=== PATIENT | female | born 2000 | race African-American/Black ===

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

== ENCOUNTER 2021-04-04 22:18 | Emergency (ER) | payer MEDICAID ==
[~2021-04-04 22:18] MED LIST: POLYTRIM 1000010 ML OD; SINGULAIR PO
[2021-04-04] MEDS ORDERED: PREDNISONE20 MG PO (23:19)
[2021-04-04 23:23] VITALS: BP 104/58
== END 2021-04-04 23:23 | disposition home or self-care (01) ==
LOC: ED 22:18
DX: T26.91XA Corrosion of right eye and adnexa, part unspecified, initial encounter (principal); L25.9 Unspecified contact dermatitis, unspecified cause; X58.XXXA Exposure to other specified factors, initial encounter; Y99.0 Civilian activity done for income or pay
CPT/HCPCS: J7512

== ENCOUNTER → 2022-07-17 | Outpatient (CLI) | payer MEDICAID ==
[~2022-07-17] MED LIST changes: +PREDNISONE20 MG PO
== END ==
LOC: LAB 11:08
DX: R30.0 Dysuria (principal)

== ENCOUNTER → 2024-10-23 | Outpatient (CLI) | payer MEDICAID ==
[2024-10-23 08:50] LABS: PH-URINE 5.5 (5.0 - 8.0); URINE APPEARANCE CLEAR (CLEAR); URINE BILIRUBIN NEGATIVE (NEGATIVE); URINE BLOOD 2+ (NEGATIVE); URINE COLOR YELLOW (YELLOW); URINE GLUCOSE NEGATIVE (NEGATIVE); URINE KETONE NEGATIVE (NEGATIVE); URINE LEUKOCYTE ESTERASE NEGATIVE (NEGATIVE); URINE NITRATE NEGATIVE (NEGATIVE); URINE PROTEIN(semi-quant) NEGATIVE (NEGATIVE)
[2024-10-23 08:51] LABS: URINE MUCUS PRESENT (NOT PRESENT)
== END ==
LOC: LAB 08:31
PROVIDERS: Nurse Practitioner
DX: Z87.440 Personal history of urinary (tract) infections (principal)

== ENCOUNTER → 2024-10-31 | Outpatient (CLI) | payer MEDICAID | LOC: LAB 11:34 | DX: R35.0 Frequency of micturition (principal) ==